=== PATIENT | female | born 2000 | race Hispanic/Latino ===

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

== ENCOUNTER 2022-01-16 03:57 | Inpatient (IN) | payer OTHER ==
[2022-01-16 04:18] VITALS: BMI 33.1
[2022-01-16] MEDS ORDERED: Butorphanol Tartrate 1 MG/ML VIAL ONE (07:54)
[2022-01-16] MEDS ORDERED: hydrALAZINE 20 MG/ML VIAL SLOW IVP PRN ×2 (08:06→14:31)
[2022-01-16] MEDS ORDERED: Methylergonovine 0.2 MG/ML VIAL IM PRN (08:06)
[2022-01-16] MEDS ORDERED: Promethazine HCl 25 MG/ML VIAL IM PRN (08:06)
[2022-01-16] MEDS ORDERED: Ibuprofen 800 MG TAB PO PRN (08:06)
[2022-01-16] MEDS ORDERED: Butorphanol Tartrate 1 MG/ML VIAL SLOW IVP PRN (08:06)
[2022-01-16] MEDS ORDERED: Carboprost 250 MCG/ML AMP IM PRN (08:06)
[2022-01-16] MEDS ORDERED: Acetaminophen 500 MG TAB PO PRN (08:06)
[2022-01-16] MEDS ORDERED: Ondansetron PF 4 MG/2 ML Vial IVP PRN ×2 (08:06→14:31)
[2022-01-16] MEDS ORDERED: Misoprostol 200 MCG TAB PR PRN (08:06)
[2022-01-16] MEDS ORDERED: Lidocaine 1% (PF) 30 ML VIAL SC PRN (08:06)
[2022-01-16] MEDS ORDERED: NS w/ Oxytocin 30 units 500 ML IV SCH ×2 (08:15)
[2022-01-16] MEDS ORDERED: Lactated Ringer's 1,000 ML IV SCH (08:15)
[2022-01-16 09:30] LABS: Hemoglobin 11.3 g/dL (12.0-15.5); Mean Corpuscular HGB CONC 33.9 g/dL (32.0-36.0); Mean Corpuscular Hemoglobin 28.8 pg (27.0-33.0); Mean Corpuscular Volume 84.7 fl (81.6-98.3); Mean Platelet Volume 10.6 fl (7.4-10.4); Platelet Count 233 10x3/uL (150-450); RBC Distribution Width 21.4 % (11.5-14.5); Red Blood Cell (RBC) Count 3.93 10x6/uL (3.90-5.03); White Blood Cell (WBC) Count 12.1 10x3/uL (3.5-10.5)
[2022-01-16 10:02] LABS: HBSAg Index 0.22 S/CO (0-0.99); Hep B Surf Ag Non-Reactive S/CO (NonReactive)
[2022-01-16 10:04] LABS: Syphilis Antibody Nonreactive (Nonreactive); Syphilis Antibody Index 0.14 S/CO (<1.00 Non-Reactive)
[2022-01-16 11:56] LABS: SARS-CoV-2 NAA Rapid Test Not Detected (NotDetected)
[2022-01-16 12:56] LABS: RapidComm Collect By NURSE
[2022-01-16] MEDS ORDERED: Lidocaine 1% (PF) 30 ML VIAL ONE (12:58)
[2022-01-16] MEDS ORDERED: Boostrix 0.5 ML (Tdap) VIAL (>/=7 yrs of age) IM ONE (14:31)
[2022-01-16] MEDS ORDERED: Milk Of Magnesia 30 ML UDCUP PO PRN (14:31)
[2022-01-16] MEDS ORDERED: Bisacodyl 10 MG SUPP PR PRN (14:31)
[2022-01-16] MEDS ORDERED: Preparation H Ointment 28 GM TUBE PR PRN (14:31)
[2022-01-16] MEDS ORDERED: Lanolin Ointment 7 GM TUBE TOP PRN (14:31)
[2022-01-16] MEDS ORDERED: HYDROcodone/Acetaminophen 5/325 mg Tablet PO PRN ×2 (14:31)
[2022-01-16] MEDS ORDERED: diphenhydrAMINE 25 MG CAP PO PRN (14:31)
[2022-01-16] MEDS ORDERED: Benzocaine-Menthol 82.5 ML CAN TOP PRN (14:31)
[2022-01-17] MEDS: Ibuprofen 800 MG TAB PO SCH ×4 (05:11→21:14)
[2022-01-17] MEDS: Ferrous Sulfate 325 MG TAB PO SCH ×3 (06:40→16:05)
[2022-01-17] MEDS: Docusate 100 MG CAP PO SCH ×3 (06:41→21:14)
[2022-01-17] MEDS: Prenatal Vitamin 1 TAB PO SCH (09:17)
[2022-01-18] MEDS: Ibuprofen 800 MG TAB PO SCH ×2 (06:12→13:50)
[2022-01-18] MEDS: Docusate 100 MG CAP PO SCH (08:02)
[2022-01-18] MEDS: Prenatal Vitamin 1 TAB PO SCH (08:02)
[2022-01-18 08:03] VITALS: BP 118/59; TEMP 98
[2022-01-18] MEDS: Ferrous Sulfate 325 MG TAB PO SCH (09:21)
== END 2022-01-18 16:00 | disposition home or self-care (01) | DRG 807 ==
LOC: CSHLD/OP 03:57 → CSHLD 06:25 → CSHPP 01-17 01:35
PROVIDERS: ADMIT Student in an Organized Health Care Education/Training Program; ATTEND Student in an Organized Health Care Education/Training Program
PROC: 10D07Z6 Extraction of Products of Conception, Vacuum, Via Natural or Artificial Opening (ICD-10-PCS; principal; 2022-01-16)
PROC: 0KQM0ZZ Repair Perineum Muscle, Open Approach (ICD-10-PCS; 2022-01-16)
PROC: 10907ZC Drainage of Amniotic Fluid, Therapeutic from Products of Conception, Via Natural or Artificial Opening (ICD-10-PCS; 2022-01-16)
DX: O32.8XX0 Maternal care for other malpresentation of fetus, not applicable or unspecified (principal); Z37.0 Single live birth; O76 Abnormality in fetal heart rate and rhythm complicating labor and delivery; Z20.822 Contact with and (suspected) exposure to COVID-19; Z3A.39 39 weeks gestation of pregnancy; O70.1 Second degree perineal laceration during delivery
CPT/HCPCS: 36415; 82805; 85027; 86780; 86850; 86900; 86901; 87340; 99285; J0595; U0002

== ENCOUNTER 2023-12-01 00:38 | Inpatient (IN) | payer OTHER ==
[2023-12-01] MEDS ORDERED: Carboprost 250 MCG/ML AMP IM PRN (00:59)
[2023-12-01] MEDS ORDERED: Tranexamic Acid 1,000 MG/10 ML VIAL IVP PRN (00:59)
[2023-12-01] MEDS ORDERED: Acetaminophen 500 MG TAB PO PRN (00:59)
[2023-12-01] MEDS ORDERED: HYDROcodone/Acetaminophen 5/325 mg Tablet PO PRN (00:59)
[2023-12-01] MEDS ORDERED: Diphenoxylate HCl/Atropine Tablet PO PRN (00:59)
[2023-12-01] MEDS ORDERED: Lidocaine 1% (PF) 30 ML VIAL SC PRN (00:59)
[2023-12-01] MEDS ORDERED: Misoprostol 200 MCG TAB PR PRN (00:59)
[2023-12-01] MEDS ORDERED: Promethazine HCl 25 MG/ML VIAL IM PRN ×2 (00:59→02:16)
[2023-12-01] MEDS ORDERED: Ibuprofen 800 MG TAB PO PRN (00:59)
[2023-12-01] MEDS ORDERED: hydrALAZINE 20 MG/ML VIAL SLOW IVP PRN ×2 (00:59→07:52)
[2023-12-01] MEDS ORDERED: Methylergonovine 0.2 MG/ML VIAL IM PRN (00:59)
[2023-12-01] MEDS ORDERED: Docusate 100 MG CAP PO PRN (00:59)
[2023-12-01] MEDS ORDERED: fentaNYL 50 mcg/mL 1 mL Vial SLOW IVP PRN (00:59)
[2023-12-01] MEDS ORDERED: Oxytocin 30 units/NS 500 ML 500 ML IV SCH ×3 (01:00)
[2023-12-01] MEDS ORDERED: Lactated Ringer's 1,000 ML IV SCH (01:00)
[2023-12-01 01:22] VITALS: BMI 34.3
[2023-12-01 01:29] LABS: Hematocrit 33.6 % (34.9-44.5); Hemoglobin 11.4 g/dL (12.0-15.5); Mean Corpuscular HGB CONC 33.9 g/dL (32.0-36.0); Mean Corpuscular Hemoglobin 29.6 pg (27.0-33.0); Mean Corpuscular Volume 87.3 fL (81.6-98.3); Mean Platelet Volume 10.2 fL (7.4-10.4); Platelet Count 225 10x3/uL (150-450); RBC Distribution Width 16.1 % (11.5-14.5); Red Blood Cell (RBC) Count 3.85 10x6/uL (3.90-5.03); White Blood Cell (WBC) Count 8.9 10x3/uL (3.5-10.5)
[2023-12-01] MEDS: fentaNYL/Ropivacaine Epidural 100 ML ONE (01:53)
[2023-12-01 01:55] LABS: Syphilis Antibody Nonreactive (Nonreactive); Syphilis Antibody Index 0.13 S/CO (<1.00 Non-Reactive)
[2023-12-01 01:56] LABS: HBsAg Index 0.22 S/CO (0-0.99); Hep B Surf Ag - L&D Non-Reactive S/CO (NonReactive)
[2023-12-01] MEDS ORDERED: Ondansetron PF 4 MG/2 ML Vial IVP PRN (02:16)
[2023-12-01] MEDS ORDERED: ePHEDrine Sulfate 50 MG/10 ML VIAL SLOW IVP PRN (02:16)
[2023-12-01] MEDS ORDERED: Lactated Ringer's 500 ML IV PRN (02:16)
[2023-12-01] MEDS ORDERED: Acetaminophen 325 MG TAB PO PRN (02:16)
[2023-12-01] MEDS ORDERED: Naloxone HCl 0.4 mg/ml Vial IVP PRN ×2 (02:16)
[2023-12-01] MEDS ORDERED: diphenhydrAMINE 50 MG/ML VIAL IVP PRN (02:16)
[2023-12-01] MEDS ORDERED: Moisturizing Cream (Eucerin) 113 GM JAR TOP PRN (02:16)
[2023-12-01] MEDS ORDERED: Communication Order-Pharmacy FS SCH (02:30)
[2023-12-01] MEDS ORDERED: fentaNYL 2 mcg/Ropivacaine 0.2% Epidural 100 ML CADD EPIDURAL SCH (02:30)
[2023-12-01] MEDS: Ondansetron PF 4 MG/2 ML Vial IVP PRN (06:28)
[2023-12-01] MEDS ORDERED: Bisacodyl 10 MG SUPP PR PRN (07:52)
[2023-12-01] MEDS ORDERED: Lanolin Ointment 7 GM TUBE TOP PRN (07:52)
[2023-12-01] MEDS ORDERED: Milk Of Magnesia 30 ML UDCUP PO PRN (07:52)
[2023-12-01] MEDS ORDERED: Benzocaine-Menthol 82.5 ML CAN TOP PRN (07:52)
[2023-12-01] MEDS ORDERED: Ferrous Sulfate 325 MG TAB PO SCH (08:00)
[2023-12-01] MEDS ORDERED: Ibuprofen 800 MG TAB PO SCH (08:30)
[2023-12-01] MEDS ORDERED: Docusate 100 MG CAP PO SCH (09:00)
[2023-12-01] MEDS ORDERED: Prenatal Vitamin 1 TAB PO SCH (09:00)
[2023-12-01] MEDS: Boostrix 0.5 ML (Tdap) VIAL (>/=7 yrs of age) IM ONE (10:14)
[2023-12-01] MEDS: Ibuprofen 800 MG TAB PO SCH (16:48)
[2023-12-02 06:58] LABS: Hematocrit 31.2 % (34.9-44.5); Hemoglobin 10.5 g/dL (12.0-15.5)
[2023-12-02 08:59] VITALS: BP 118/61; TEMP 99
== END 2023-12-02 15:10 | disposition home or self-care (01) | DRG 807 ==
LOC: CSHLD/OP 00:38 → CSHLD 01:00 → CSHPED 09:57
PROVIDERS: ADMIT Family Medicine; ATTEND Family Medicine
PROC: 10E0XZZ Delivery of Products of Conception, External Approach (ICD-10-PCS; principal; 2023-12-01)
PROC: 10907ZC Drainage of Amniotic Fluid, Therapeutic from Products of Conception, Via Natural or Artificial Opening (ICD-10-PCS; 2023-12-01)
DX: O99.02 Anemia complicating childbirth (principal); Z37.0 Single live birth; Z3A.38 38 weeks gestation of pregnancy; Z79.899 Other long term (current) drug therapy; D64.9 Anemia, unspecified
CPT/HCPCS: 36415; 51702; 85014; 85018; 85027; 86780; 86850; 86900; 86901; 87340; 99285; J2405